=== PATIENT | female | born 1995 | race American Indian/Alaskan Native ===

== ENCOUNTER 2017-07-02 21:30 | Emergency (ER) | payer SELFPAY ==
[2017-07-02 21:39] VITALS: BP 115/51
[2017-07-02 22:01] LABS: Basophils # (Auto) 0.1 K/mm3 (0.0-0.1); Basophils % (Auto) 0.6 % (0.0-1.8); Eosinophils # (Auto) 0.1 K/mm3 (0.0-0.4); Eosinophils % (Auto) 1.4 % (0.0-4.3); Hematocrit 36.1 % (30.3-42.9); Hemoglobin 12.6 gm/dl (10.1-14.3); Lymphocytes # (Auto) 2.1 K/mm3 (1.2-5.4); Lymphocytes % (Auto) 24.6 % (13.4-35.0); Mean Corpuscular HGB Conc 35 % (30-34); Mean Corpuscular Hemoglobin 33 pg (28-32); Mean Corpuscular Volume 96 fl (79-97); Monocytes # (Auto) 0.4 K/mm3 (0.0-0.8); Monocytes % (Auto) 5.2 % (0.0-7.3); Platelet Count 159 K/mm3 (140-440); Red Blood Count 3.78 M/mm3 (3.65-5.03); Red Cell Distribution Width 12.5 % (13.2-15.2)
[2017-07-02 22:40] LABS: Bilirubin,Urine NEG (Negative); Blood,Urine NEG (Negative); Color,Urine Yellow (Yellow); Nitrite,Urine NEG (Negative); Protein,Urine <15 mg/dL mg/dL (Negative); Urobilinogen,Urine < 2.0 mg/dL (<2.0); WBC,Urine < 1.0 /HPF (0.0-6.0)
== END 2017-07-02 22:30 | disposition left against medical advice (07) ==
LOC: ED 21:30
DX: O46.92 Antepartum hemorrhage, unspecified, second trimester (principal); Z3A.15 15 weeks gestation of pregnancy; Z53.21 Procedure and treatment not carried out due to patient leaving prior to being seen by health care provider
CPT/HCPCS: 36415; 81001; 84702; 85025; 86850; 86900; 86901

== ENCOUNTER 2017-10-14 15:05 | Outpatient (CLI) | payer MEDICAID ==
[2017-10-14 16:34] LABS: Amorphous Crystals,Urine Few; Bilirubin,Urine NEG (Negative); Blood,Urine NEG (Negative); Color,Urine Yellow (Yellow); Mucus,Urine 2+ /HPF
[2017-10-14 16:49] LABS: Amphetamine Screen,Urine PRESUMPTIVE NEGATIVE; Benzodiazepines Screen,Urine PRESUMPTIVE NEGATIVE; Methadone Screen,Urine PRESUMPTIVE NEGATIVE; Opiate Screen,Urine PRESUMPTIVE NEGATIVE
[2017-10-14 17:03] LABS: Cannabinoid Screen,Urine PRESUMPTIVE POSITIVE; Cocaine Screen,Urine PRESUMPTIVE POSITIVE
== END 2017-10-14 17:00 | disposition home or self-care (01) ==
LOC: TRG 15:05
PROVIDERS: ATTEND Obstetrics & Gynecology Gynecology
DX: O47.03 False labor before 37 completed weeks of gestation, third trimester (principal); Z3A.30 30 weeks gestation of pregnancy; Z79.899 Other long term (current) drug therapy
CPT/HCPCS: 59025; 80307; 81001

== ENCOUNTER 2018-07-12 18:28 | Emergency (ER) | payer OTHER ==
--- NOTE | 2018-07-12 18:57 | Emergency Department Report ---
Chief Complaint: Headache Stated Complaint: HEADACHE [id number] Time Seen by Provider: 07/12/18 18:52 - HPI History of Present Illness: Pt c/o frontal BALDERRAMA x 1 month states has had BALDERRAMA daily for last month, does not awake with a BALDERRAMA states she has had increased stress (+) sinus congestion no N/V, numbness, tingling, unilateral weakness, vision changes pt has been using goody powder and ibuprofen with some relief has been using flonase no PMHx, no medications on daily basis VSS MSE complete MSE screening note: Focused history and physical exam performed. ED Disposition for MSE Condition: Stable
[2018-07-12] MEDS ORDERED: NORCO 5/325 PO STA (19:38)
--- NOTE | 2018-07-12 19:47 | Emergency Department Report ---
ED General Adult HPI - General Chief complaint: Headache Stated complaint: HEADACHE [id number] Time Seen by Provider: 07/12/18 18:52 Source: patient Mode of arrival: Ambulatory Limitations: No Limitations - History of Present Illness Initial comments: 22-year-old -[place] female presents emergency department complaining of a one-month history of a dull, throbbing frontal headache associated with sinus congestion and increased sinus pressure, which has been worsening for the last 1 week. Headache is dull, throbbing and around the eyes and in the cheek bone region. It appears to be worse when she leans her head over in the frontal flexed position. Also she palpates around the sinus region. There is been no blurred vision. No scotomas. No phonophobia, but when the headaches do arise and off for Shyann. There is some photophobia associated. She denies any cough but has been some sore throat and some nasal congestion, discharge. No fevers, chills, sweats, chest pain or palpitations. No dysuria pain, no chest pain. Location: head, face Radiation: non-radiation Severity scale (0 -10): 8 Quality: dull Consistency: constant Improves with: none Worsens with: none Associated Symptoms: cough, headaches. denies: shortness of breath, syncope, weakness - Related Data Previous Rx's Medication Instructions Recorded Last Taken Type Cephalexin [Keflex] 500 mg PO BID #20 capsule 04/10/18 Unknown Rx Cetirizine HCl [ZyrTEC] 10 mg PO QDAY #30 capsule 04/10/18 Unknown Rx Hydrocortisone Valerate 1 applic TP BID #60 gram 04/10/18 Unknown Rx Ketoconazole [Nizoral] 30 ml TP Q2W PRN #120 ml 04/10/18 Unknown Rx Mineral Oil/Kaylynn,White(Nf) 1 applic TP BID #120 gram 04/10/18 Unknown Rx [Eucerin (Nf)] Mupirocin [Bactroban 2% OINT] 1 applic TP TID #1 tube 04/14/18 Unknown Rx Triamcinolone 0.1% [Kenalog 0.1% 1 applic TP TID #1 tube 04/14/18 Unknown Rx CREAM] Amoxicillin/Potassium Clav 1 each PO BID #20 tablet 07/12/18 Unknown Rx [Augmentin 875-125 Tablet] Butalb/Acetaminophen/Caffeine 1 cap PO Q6HR PRN #20 cap 07/12/18 Unknown Rx [Fioricet 50-300-40 mg CAP] Cetirizine HCl/Pseudoephedrine 1 each PO BID #14 tab.er.12h 07/12/18 Unknown Rx [Zyrtec-D Tablet] predniSONE [Deltasone] 20 mg PO QDAY #5 tab 07/12/18 Unknown Rx Allergies Allergy/AdvReac Type Severity Reaction Status Date / Time banana Allergy Anaphylaxis Verified 04/10/18 04:52 ED Review of Systems ROS: Stated complaint: HEADACHE [id number] Other details as noted in HPI Constitutional: denies: chills, fever Eyes: denies: eye pain, eye discharge, vision change ENT: congestion. denies: ear pain, throat pain Respiratory: denies: cough, shortness of breath, wheezing Cardiovascular: denies: chest pain, palpitations Endocrine: no symptoms reported Gastrointestinal: denies: abdominal pain, nausea, diarrhea Genitourinary: denies: urgency, dysuria, discharge Musculoskeletal: denies: back pain, joint swelling, arthralgia Skin: denies: rash, lesions Neurological: headache. denies: weakness, paresthesias Psychiatric: denies: anxiety, depression Hematological/Lymphatic: denies: easy bleeding, easy bruising ED Past Medical Hx - Past Medical History Hx Hypertension: No Hx Diabetes: No Hx Deep Vein Thrombosis: No Hx Renal Disease: No Hx Sickle Cell Disease: No Hx Seizures: No Hx Asthma: No Hx HIV: No - Social History Smoking Status: Current Some Day Smoker Substance Use Type: Alcohol, Marijuana - Medications Home Medications: Home Medications Medication Instructions Recorded Confirmed Last Taken Type Cephalexin [Keflex] 500 mg PO BID #20 capsule 04/10/18 Unknown Rx Cetirizine HCl [ZyrTEC] 10 mg PO QDAY #30 capsule 04/10/18 Unknown Rx Hydrocortisone Valerate 1 applic TP BID #60 gram 04/10/18 Unknown Rx Ketoconazole [Nizoral] 30 ml TP Q2W PRN #120 ml 04/10/18 Unknown Rx Mineral Oil/Kaylynn,White(Nf) 1 applic TP BID #120 gram 04/10/18 Unknown Rx [Eucerin (Nf)] Mupirocin [Bactroban 2% OINT] 1 applic TP TID #1 tube 04/14/18 Unknown Rx Triamcinolone 0.1% [Kenalog 0.1% 1 applic TP TID #1 tube 04/14/18 Unknown Rx CREAM] Amoxicillin/Potassium Clav 1 each PO BID #20 tablet 07/12/18 Unknown Rx [Augmentin 875-125 Tablet] Butalb/Acetaminophen/Caffeine 1 cap PO Q6HR PRN #20 cap 07/12/18 Unknown Rx [Fioricet 50-300-40 mg CAP] Cetirizine HCl/Pseudoephedrine 1 each PO BID #14 tab.er.12h 07/12/18 Unknown Rx [Zyrtec-D Tablet] predniSONE [Deltasone] 20 mg PO QDAY #5 tab 07/12/18 Unknown Rx ED Physical Exam - General Limitations: No Limitations General appearance: alert, in no apparent distress - Head Head exam: Present: atraumatic, normocephalic - Eye Eye exam: Present: normal appearance, PERRL, EOMI, other (negative funduscopic examination). Absent: nystagmus Pupils: Absent: unequal - ENT ENT exam: Present: normal exam, normal orophraynx, mucous membranes moist, other (some sinus congestion bilaterally with increase sinus tenderness with percussion of the maxillary sinus. There is some effusion to her right ear clear.) - Neck Neck exam: Present: normal inspection, full ROM. Absent: lymphadenopathy, thyromegaly - Respiratory Respiratory exam: Present: normal lung sounds bilaterally. Absent: respiratory distress - Cardiovascular Cardiovascular Exam: Present: regular rate, normal rhythm. Absent: systolic murmur, diastolic murmur, rubs, gallop - GI/Abdominal GI/Abdominal exam: Present: soft, normal bowel sounds - Extremities Exam Extremities exam: Present: normal inspection - Back Exam Back exam: Present: normal inspection, full ROM - Neurological Exam Neurological exam: Present: alert, oriented X3, CN II-XII intact, normal gait, other (. Romberg is negative. Normal [id number], normal finger to nose. No ataxia. Gait coordinated and smooth. No change in pain with squatting or bearing down) - Psychiatric Psychiatric exam: Present: normal affect, normal mood - Skin Skin exam: Present: warm, dry, intact, normal color. Absent: rash ED Course Vital Signs 07/12/18 18:52 Temperature 98.8 F Pulse Rate 85 Respiratory 20 Rate Blood Pressure 140/89 O2 Sat by Pulse 100 Oximetry Critical care attestation.: If time is entered above; I have spent that time in minutes in the direct care of this critically ill patient, excluding procedure time. ED Disposition Clinical Impression: Cephalgia, Sinus congestion Disposition: DC-01 TO HOME OR SELFCARE Is pt being admited?: No Does the pt Need Aspirin: No Condition: Stable Instructions: Allergic Rhinitis (ED), Acute Headache (ED), Sinusitis (ED) Referrals: EUNICE REZA MD [Primary Care Provider] - 3-5 Days [facility] [Provider Group] - 3-5 Days
[2018-07-12 20:11] VITALS: BP 120/81
== END 2018-07-12 20:10 | disposition home or self-care (01) ==
LOC: ED 18:28
DX: R51 Headache (principal); F17.200 Nicotine dependence, unspecified, uncomplicated; H65.191 Other acute nonsuppurative otitis media, right ear; Z91.018 Allergy to other foods
CPT/HCPCS: 99282